=== PATIENT | female | born 1985 | race Caucasian/White ===

== ENCOUNTER 2019-09-26 00:47 | Inpatient (IN) ==
--- NOTE | 2019-09-24 20:27 | History and Physical Report ---
DATE OF ADMISSION: 09/26/2019 CHIEF COMPLAINT: Term , 2 previous sections. HISTORY OF PRESENT ILLNESS: The patient is a 34-year-old 3, para 2. She is a late arrival for care, first visit was at 20 weeks. She states that according to her last menstrual period, which she keeps a track of, her due date is 09/26/2019. She has had 2 previous sections and she requested that the surgery be delayed until her due date. In 2010, she had a for a 9-pound boy. She had a 15-hour labor. She went to full dilatation. She pushed, the head did not come down. Then in 2014, she had another 9-pound boy. This was a repeat section at 39 weeks. As previously stated, she is a late arrival for care, requested that the surgery not be performed until her due date, which is 09/26/2019, and she is presently scheduled for a repeat low segment section with also a preoperative diagnosis of macrosomia. ALLERGIES: No known drug allergies. PAST SURGICAL HISTORY: Two previous C-sections. PAST MEDICAL HISTORY: No history of rheumatic fever, heart disease, heart murmur, diabetes, or tuberculosis. SOCIAL HISTORY: No smoking, no alcohol intake. Works for [employer]. FAMILY HISTORY: She has 2 boys in good health. Mom 61, in good health. Father 61, in good health. Two brothers and two sisters in good health. REVIEW OF SYSTEMS: HEAD: No symptoms of frequent or severe headaches. EYES: No symptoms of blurred vision or double vision. EARS: No symptoms of frequent ear infection or difficulty hearing. PHYSICAL EXAMINATION: GENERAL: Well-developed, well-nourished 34-year-old female, alert, oriented x3 and cooperative, in no acute distress. EYES: Conjunctivae are pink. Sclerae white, no evidence of jaundice. EARS: Had normal light reflex bilaterally. NOSE: Had normal mucosa. Septum is midline. There were no polyps. THROAT: No erythema or evidence of infection. Teeth are in good state of repair. HEAD: Normocephalic, normal distribution of hair. NECK: Supple. Trachea midline. Thyroid is not enlarged. There is no adenopathy appreciated. Both carotids are of good intensity. CHEST: Clear to auscultation and percussion. No wheezes, rales or rhonchi appreciated. ABDOMEN: Revealed term size fetus, well-healed Pfannenstiel scar. Estimated weight 9 pounds. MUSCULOSKELETAL: No calf tenderness. PELVIC: Refused by the patient. IMPRESSIONS OF THIS CASE: Two previous sections and macrosomia.
[2019-09-26] MEDS ORDERED: LACTATED RINGER'S 1,000 ML IV SCH ×2 (01:30→04:00)
[2019-09-26 01:43] LABS: Basophils # (auto) 0.01 K/uL (0-0.2); Basophils % (auto) 0.1 %; Eosinophils # (auto) 0.02 K/uL (0-0.5); Eosinophils % (auto) 0.3 %; Hematocrit (blood only) 37.1 % (37-47); Immature Granulocytes # (auto) 0.02 K/uL (0.00-0.02); Immature Granulocytes % (auto) 0.3 %; Lymphocytes # (auto) 1.49 K/uL (1.2-3.4); Lymphocytes % (auto) 22.1 %; Mean Corpuscular Hemoglobin 33.2 pg (25-34); Mean Corpuscular Volume 94.9 fL (80-100); Monocytes # (auto) 0.59 K/uL (0.11-0.59); Monocytes % (auto) 8.8 %; Neutrophils % (auto) 68.4 %; Platelet Count 190 K/uL (130-400); RDW Coefficient of Variation 13.1 % (11.5-14.5); RDW Standard Deviation 44.9 fL (36.4-46.3); Red Blood Count 3.91 M/uL (4.2-5.4); White Blood Count 6.73 K/uL (4.8-10.8)
[2019-09-26] MEDS ORDERED: DiphenhydrAMINE HCL 50 MG/ML VIAL IV PRN ×2 (01:45→19:45)
[2019-09-26] MEDS ORDERED: KETOROLAC 30 MG/ML VIAL IV PRN ×2 (01:45→19:45)
[2019-09-26] MEDS ORDERED: DC INTRASPINAL MORPHINE SCH (01:45)
[2019-09-26] MEDS ORDERED: ONDANSETRON INJ 2 MG/ML 2 ML VIAL IV PRN ×2 (01:45→19:45)
[2019-09-26] MEDS ORDERED: CITRIC ACID/SODIUM CITRATE 15 ML UDC PO SCH (01:45)
[2019-09-26] MEDS ORDERED: NO NARCOTICS OR SEDATIVES SCH (01:45)
[2019-09-26] MEDS ORDERED: cefOXitin 2,000 MG in DEXTROSE 5% 50 ML IV ONE (01:45)
[2019-09-26] MEDS ORDERED: NALOXONE HCL 0.4 MG/1 ML VIAL/CARP IV PRN (01:45)
[2019-09-26] MEDS ORDERED: SODIUM CHLORIDE 0.9% 1000ML 1,000 ML IV SCH (01:45)
[2019-09-26] MEDS ORDERED: LACTATED RINGER'S 500 ML IV PRN (01:45)
[2019-09-26] MEDS ORDERED: PROMETHAZINE HCL 25 MG in SODIUM CHLORIDE 0.9% 50 ML IV PRN ×2 (01:45→19:45)
[2019-09-26] MEDS ORDERED: ePHEDrine sulfate 50 MG/ML AMP IV PRN (01:45)
[2019-09-26] MEDS ORDERED: NALOXONE HCL 1 MG in SODIUM CHLORIDE 0.9% 1000ML 1,000 ML IV PRN (01:45)
[2019-09-26] MEDS ORDERED: NALOXONE HCL 0.08 MG in SYRINGE 1.8 ML IV PRN (01:45)
[2019-09-26] MEDS ORDERED: PHENYLEPHRINE HCL 10 MG/ML VIAL IV ONE (02:39)
[2019-09-26] MEDS ORDERED: ePHEDrine sulfate 50 MG/ML SYR IM ONE (02:39)
[2019-09-26] MEDS ORDERED: OXYTOCIN 10 UNITS/ML VIAL IV ONE (02:39)
[2019-09-26] MEDS ORDERED: MoRPHine SULFATE PF 1 MG/ML 10 ML AMP/VIAL EPI ONE (02:39)
[2019-09-26] MEDS ORDERED: fentaNYL citrate 100 MCG/2 ML VIAL IV ONE (02:39)
[2019-09-26] MEDS ORDERED: BENZOCAINE 20% AER SPR 82.5 GM CAN EXT PRN (03:55)
[2019-09-26] MEDS ORDERED: SENNA 8.6 MG TAB PO PRN (03:55)
[2019-09-26] MEDS ORDERED: DIPHTHERIA/TETANUS/PERTUSSIS 0.5 ML SYR/VIAL IM ONE (03:55)
[2019-09-26] MEDS ORDERED: SUPERCREAM 0.870% 15 GM JAR EXT PRN (03:55)
[2019-09-26] MEDS ORDERED: HYDROCORTISONE ACETATE 25 MG SUPP PR PRN (03:55)
[2019-09-26] MEDS ORDERED: MAGNESIUM HYDROXIDE SUSP 30 ML UDC PO PRN (03:55)
--- NOTE | 2019-09-26 03:55 | Post Operative Brief Note ---
Immediate Post Op Note v1 Date of Surgery September 26, 2019 Pre & Post Diagnosis two previous sections active labor I identified the patient and participated in the time-out.: Yes Procedure repeat section repair of uterine laceration Surgeon Miguel Cee MD Combination Saw Operator Dr Viveros Estimated Blood Loss 1,000 Findings Consistent with Post-Op Diagnosis Fluids 3000 ml Specimens placenta Drains Ellis Catheter Anesthesia Type MAC Spinal Regional Complications uterine laceration Disposition Accompanied Patient To Recovery: No Disposition: Recovery Room
[2019-09-26] MEDS: OXYTOCIN 20 UNITS in LACTATED RINGER'S 1,000 ML IV SCH ×2 (04:51→12:55)
[2019-09-26] MEDS ORDERED: OXYTOCIN 10 UNITS/ML VIAL ONE (05:02)
--- NOTE | 2019-09-26 05:47 | Operative Report (OR) ---
DATE OF OPERATION: 09/26/2019 She is a 5, para 4, two spontaneous ABs and had 2 previous sections. PREOPERATIVE DIAGNOSES: Intrauterine at term, active labor. Two previous sections. POSTOPERATIVE DIAGNOSES: Intrauterine at term, active labor. Two previous sections. Delivered a live male . Lower uterine laceration. SURGEON: Dr. Cee. [employer] OPERATOR: Dr. Antunez. ESTIMATED BLOOD LOSS: 1000 mL. ANESTHESIA: Spinal. OPERATIVE FINDINGS AND PROCEDURE: The patient was brought to the OR table, correctly identified by armband and conversation. Compression stockings were applied. A Ellis catheter was inserted aseptically in the bladder, connected to gravity drainage. Lower uterine segment was painted with an alcohol based sterilizing solution it was allowed to dry for 3 minutes. Her abdomen was then draped in usual sterile fashion. Adequacy of the anesthesia was tested and found to be good. A Pfannenstiel incision was made through a previous scar. We held the abdominal tissue up high so we could enter higher the abdominal wall. We then entered the cut through the fat and entered the cut through the fascia, then cut the fascia laterally with scissors. Then , the recti muscles were already . We entered the peritoneum, and exposed the lower uterine segment. The head was relatively deep in the pelvis. We sized the vesicouterine fold relatively high on the uterine segment, undermined the bladder then entered with scissors, spread the incision laterally had some difficulty getting the head out. I had to dislodge it, make 2 attempts, finally came out. Suctioned the through the mouth and the nose, allowed the cord to pulse for a minute, then clamped the cord and handed the baby off to the case assistant service, Carlyn, who was scrubbed and present at the time of delivery. Cord blood was taken. The placenta was removed manually, was brought out through the incision. We had a lower uterine tears that went through the uterine vessels on either side and actually into the back of the uterus. We carefully identified the upper and lower uterine segment and then sutured it with a deep heavy chromic gut suture and on the right side we used 2 horizontal sutures to control the bleeding. Then we did a separate layer over this with a heavy duty Vicryl, which approximated the lower uterine segment nicely and then actually did several [id number] of heavy duty Vicryl after that to further approximate the lower uterine segment posteriorly. Some of the tear had gone through the posterior leaf of the broad ligament. There was some bleeding, so we used a running chromic on both sides to approximate the broad ligament and sew it to the uterus and this created good hemostasis. We then washed the pelvis clean of all blood clots and debris, checked for good hemostasis. Then replaced uterus, tubes, and ovaries. I then reperitonealized the bladder flap with a running 3-0 chromic. Then, I did a very careful anatomical approximation of the anterior wall. I did a running chromic suture of the peritoneum. Then I went lateral and picked up recti muscles and approximated them in the midline from the pelvic brim all the way up to the umbilicus. Then we identified the fascial layer and did a continuous interlocking approximation of the fascia with wide lateral bites. We freed up the edges of the incision, washed the incision, did a running plain and then approximated the skin edges with staple clips. I attest to the content of the Intraoperative Record and any orders documented therein. Any exception s are noted below.
[2019-09-26] MEDS: SIMETHICONE 80 MG CHEW PO SCH ×4 (08:29→21:33)
[2019-09-26] MEDS: DOCUSATE SODIUM 100 MG CAP PO SCH ×2 (08:30→21:33)
[2019-09-26] MEDS: PRENATAL VITAMIN 1 TAB PO SCH (08:30)
[2019-09-26] MEDS: FERROUS SULFATE 325 MG TAB PO SCH (08:30)
[2019-09-26] MEDS ORDERED: MEPERIDINE HCL 50 MG/ML CARP IV PRN (19:45)
[2019-09-26] MEDS ORDERED: ZOLPIDEM TARTRATE 5 MG TAB PO PRN (19:45)
[2019-09-27 06:53] LABS: Hematocrit (blood only) 21.3 % (37-47); Hemoglobin 7.2 g/dL (12.0-16.0); Mean Corpuscular Hemoglobin 31.9 pg (25-34); Mean Corpuscular Hgb Conc 33.8 g/dL (32-36); Mean Corpuscular Volume 94.2 fL (80-100); Mean Platelet Volume 9.9 fL (7.4-10.4); Platelet Count 146 K/uL (130-400); RDW Coefficient of Variation 13.6 % (11.5-14.5); RDW Standard Deviation 46.5 fL (36.4-46.3); Red Blood Count 2.26 M/uL (4.2-5.4); White Blood Count 9.14 K/uL (4.8-10.8)
[2019-09-27 07:18] LABS: Basophils # (auto) 0.01 K/uL (0-0.2); Basophils % (auto) 0.1 %; Eosinophils # (auto) 0.02 K/uL (0-0.5); Eosinophils % (auto) 0.2 %; Immature Granulocytes # (auto) 0.03 K/uL (0.00-0.02); Immature Granulocytes % (auto) 0.3 %; Lymphocytes # (auto) 1.06 K/uL (1.2-3.4); Lymphocytes % (auto) 11.6 %; Monocytes # (auto) 0.61 K/uL (0.11-0.59); Monocytes % (auto) 6.7 %; Neutrophils # (auto) 7.41 K/uL (1.4-6.5); Neutrophils % (auto) 81.1 %; RBC Morphology Unremarkable
[2019-09-27] MEDS: FERROUS SULFATE 325 MG TAB PO SCH (07:41)
[2019-09-27] MEDS: DOCUSATE SODIUM 100 MG CAP PO SCH ×2 (07:41→20:28)
[2019-09-27] MEDS: SIMETHICONE 80 MG CHEW PO SCH ×3 (07:41→20:28)
[2019-09-27] MEDS: PRENATAL VITAMIN 1 TAB PO SCH ×2 (07:44→11:54)
--- NOTE | 2019-09-27 09:06 | Obstetrical Progress Note ---
Date of Service September 27, 2019 Assessment & Plan Admission and Anticipated Discharge Date Admission Date: September 26, 2019 Physical Exam Physical Exam: abdomen soft and non tender bandage removed incision is clean and dry no calf tenderness ambulating vaginal bleeding scant hgb 7.2 Results & Data ([facility]) Vital Signs (Past 12 Hours) Vital Signs Temp Pulse Resp BP Pulse Ox 09/27/19 07:45 36.9 C 82 16 114/71 96 09/27/19 04:00 73 18 111/72 09/26/19 23:10 36.9 C 68 18 101/63
[2019-09-27] MEDS: IBUPROFEN 600 MG TAB PO PRN ×2 (11:43→20:29)
[2019-09-27] MEDS: OXYCODONE/ACETAMINOPHEN 5mg/325mg TAB PO PRN ×2 (11:43→20:28)
[2019-09-27] MEDS ORDERED: bisacodyL 5 MG TABEC PO SCH (20:00)
[2019-09-28] MEDS: IBUPROFEN 600 MG TAB PO PRN ×4 (00:30→17:50)
[2019-09-28] MEDS: OXYCODONE/ACETAMINOPHEN 5mg/325mg TAB PO PRN ×4 (00:31→17:51)
[2019-09-28] MEDS ORDERED: bisacodyL 10 MG SUPP PR PRN (03:55)
[2019-09-28 07:26] LABS: Hematocrit (blood only) 17.8 % (37-47)
[2019-09-28] MEDS: PRENATAL VITAMIN 1 TAB PO SCH (07:49)
[2019-09-28] MEDS: DOCUSATE SODIUM 100 MG CAP PO SCH (07:49)
[2019-09-28] MEDS: FERROUS SULFATE 325 MG TAB PO SCH (07:49)
[2019-09-28] MEDS: SIMETHICONE 80 MG CHEW PO SCH ×3 (07:49→17:50)
[2019-09-28] MEDS ORDERED: SODIUM CHLORIDE 0.9% 250 ML IV PRN (09:30)
--- NOTE | 2019-09-28 12:14 | Obstetrical Progress Note ---
Date of Service September 28, 2019 Assessment & Plan Admission and Anticipated Discharge Date Admission Date: September 26, 2019 Physical Exam Physical Exam: abdomen soft and non tender incision is clean and dry no calf tenderness ambulating well vaginal bleeding scant hgb 6.0 will transfuse two units of blood and recheck hgb patient experienced some vertigo on standing with hgb of 6.0 Results & Data ([facility]) Vital Signs (Past 12 Hours) Vital Signs Temp Pulse Pulse Resp BP BP Pulse Ox 09/28/19 10:47 36.6 C 68 18 107/67 99 09/28/19 10:29 36.8 C 81 18 114/70 998 H 09/28/19 08:00 36.5 C 74 16 133/74 100
[2019-09-28 16:39] LABS: Hematocrit (blood only) 22.7 % (37-47); Hemoglobin 7.9 g/dL (12.0-16.0)
--- NOTE | 2019-09-28 23:16 | Discharge Summary (DS) ---
Ms. Rodriguez was a late arrival for care in our office. First visit was about 20 weeks gestation. She is a 5, para 3, blood type is O positive, group B strep positive. She had had 2 previous C-sections in [place], both for cephalopelvic disproportion. I recommended she have a repeat section at 39. She insisted that she thought that her due date was later than what I calculated out in the office and insisted that we wait until 09/26/2019 for the repeat . She came in in active labor. The night before the section was supposed to be done, she was 6 cm. We gave her epidural, membranes ruptured. There was meconium fluid. At time of , was difficult. The head was wedged into the pelvis, it was difficult to dislodge. There was a lot of scarring from the previous two sections and we had a complex tear of the lower uterine segment. The infant was born with good Apgars. Placenta was removed without difficulty. We had to suture back the lower uterine segment and upper cervix and this was done in 2 layers. So there was a lot of bleeding at the time of surgery. She also had to have some stitches placed in the posterior portion of the uterus for bleeding. Finally got the blood under control. Everything was anatomically correct at the time of surgery. Did a careful abdominal closure of the anterior abdominal wall. Estimated blood loss was 1000 mL plus at the time of surgery. Her first postoperative hemoglobin was 7.3 and this was a drop from 13. Second day, her hemoglobin was 6. She had some symptoms of vertigo on standing and so she was typed and crossed and given 2 units. The plan was to give her the 2 units, check her hemoglobin, and as long as she is not symptomatic to discharge her with the usual instructions to call the office if she had a temperature over 100 or any heavy bleeding.
--- NOTE | 2019-10-15 13:00 | PAT Medication Instructions ---
Medication Instructions Date of Service October 15, 2019 Home Medications Medication Instructions Recorded ibuprofen [Motrin IB] 600 mg PO Q6H PRN #60 tab 09/28/19 oxycodone-acetaminophen [Percocet] 1 tab PO Q6H PRN #40 tab 09/28/19 Other Notes Home Medications Iron With Herbs 20 ml PO QAM calcium carbonate [Calcium 600] 600 - 900 mg PO BID magnesium 200 mg PO QAM DO NOT take the morning of surgery Iron With Herbs 20 ml PO QAM calcium carbonate [Calcium 600] 600 - 900 mg PO BID magnesium 200 mg PO QAM Take evening before surgery calcium carbonate [Calcium 600] 600 - 900 mg PO BID Other Notes If you have any questions please call us at [phone] or [phone] or [phone] or [phone]
--- NOTE | 2019-10-15 13:07 | Anesthesiology Consultation ---
Date of Service October 15, 2019 Assessment & Plan (1) Encounter for pre-operative examination: - Chart originally documented under V#[id number] but V#[id number] was used during patient's admission, therefore information was transferred to updated V# account. Per PAT assessment on 09/11: Travel screen- Patient traveled to [facility] for over night stay 09/04-09/05. Patient reports being very diligent at following COVID guidelines, +mask, + social distancing, + frequent hand washing, no large crowds. Date of c/s greater than 2 weeks after return from travel. Patient aware importance of no further travel prior to c/s if possible (voiced und erstanding/states no future travel planned). Works at [employer] (uses PPE/+ social distancing). No known COVID-19 positive contacts. No current COVID-19 related symptoms. Patient to have preop COVID testing 09/11 ([place])- results pending. Patient states preop COVID testing scheduled again for closer to [facility]. Chart Review Chart Review: Acceptable Risk for Surgery (pending preop labs) and Patient seen in Pre Admission Testing Teaching & Discussion Pre-Anesthesia Teaching/Discussion Notes: Instructed NPO after midnight before surgery,except medications with 15 cc of water. Medication instructions provided according to the PAT guidelines. History Height/Weight Height: 5 ft 5 in Weight: 93.7 kg Allergies Allergy/AdvReac Type Severity Reaction Status Date / Time No Known Allergies Allergy Verified 09/05/19 13:25 Medications Home Medications Medication Instructions Recorded Confirmed Last Taken Vitamin 1 tab PO DAILY 09/26/19 09/26/19 09/25/19 calcium carbonate 500 mg DAILY PRN 09/26/19 09/26/19 09/25/19 ibuprofen [Motrin IB] 600 mg PO Q6H PRN #60 tab 09/28/19 Unknown oxycodone-acetaminophen [Percocet] 1 tab PO Q6H PRN #40 tab 09/28/19 Unknown Additional Notes: At time of PAT evaluation 09/12/19, home med list was: Iron With Herbs 20 ml PO QAM, calcium carbonate [Calcium 600] 600 - 900 mg PO BID, magnesium 200 mg PO QAM Past Medical History Medical History DVT (deep vein thrombosis) in post-op c/s (2010)- no issues since Exercise / Class Metabolic Activity II 4-5 Yardwork/Stairs/Walk up hill Past Surgical History Surgical History History of section X 2-2010, 2014 Past Anesthesia History No Hx of Anesthesia Complications and No Family Hx of Anesthesia Complications History of PONV No Hx of PONV and No Hx of Motion Sickness Social History Smoking Status: Never smoker Hx Alcohol Use: No (no ETOH use during (previously 1 drink/week)) Hx Substance Use: No Review of Systems Patient denies chest pain, shortness of breath, dyspnea on exertion, reflux, cough, wheezing, palpitations. Physical Exam Vital Signs Last Vital Signs Temp 36.9 C 09/28/19 16:55 Pulse 83 09/28/19 16:55 Resp 16 09/28/19 16:55 BP 109/68 09/28/19 16:55 Pulse Ox 99 09/28/19 16:55 VITALS (at of PAT visit 09/12/19) BP 112/75 P 59 TEMP 98.4 SP02 99%RA RESP 18 PHYSICAL Full neck and c-spine range of motion. Full TMJ range of motion. TMD 3 finger breaths Mallampati Score 2 Dentition: intact Lungs: clear throughout to auscultation Cardiac: regular rate and rhythm, no murmurs noted Spine: normal Extremities: no edema Testing Laboratory Results 09/28/19 16:16 Blood Type O Positive 09/26/19 01:30 Antibody Screen NEGATIVE 09/26/19 01:30
== END 2019-09-28 18:20 | disposition home or self-care (01) | DRG 788 ==
LOC: OPB 00:47 → 4S1 00:50 → 4S2 06:42